=== PATIENT | male | born 1950 | race Caucasian/White ===

== ENCOUNTER → 2017-05-14 | Outpatient (CLI) | payer OTHER ==
--- NOTE | 2017-05-14 10:29 | PCVCIMAG ---
APPROVED REPORT Indications Stenosis Doppler Spectral Velocity Analysis PSV / EDVPSV / EDV ECA (R) 69 / 10 cm/sECA (L) 76 / 8 cm/s dICA (R) 60 / 28 cm/sdICA (L) 52 / 26 cm/s Lana (R) 98 / 37 cm/smICA (L) 73 / 27 cm/s pICA (R) 92 / 37 cm/spICA (L) 56 / 19 cm/s Bulb (R) 44 / 16 cm/sBulb (L) 56 / 14 cm/s dCCA (R) 65 / 13 cm/sdCCA (L) 79 / 19 cm/s mCCA (R) 76 / 19 cm/smCCA (L) 110 / 22 cm/s Vert (R) 53 / 18 cm/sVert (L) 32 / 14 cm/s ICA/CCA 1.51ICA/CCA 0.92 Findings The right carotid bulb has moderate calcified plaque. The right proximal internal carotid artery shows <40% stenosis. The right common carotid artery shows no significant stenosis. The right external carotid artery shows no significant stenosis. The left carotid bulb has moderate calcified plaque. The left proximal internal carotid artery shows <40% stenosis. The left common carotid artery shows no significant stenosis. The left external carotid artery shows no significant stenosis. Conclusion 1. Right internal carotid artery stenosis (<40%) 2. Left internal carotid artery stenosis (<40%) 3. Antegrade vertebral flow
--- NOTE | 2017-05-14 10:40 | PCVCIMAG ---
EXAM: AORTOILIAC DUPLEX INDICATION: Palpable abdominal fullness. FINDINGS: AORTA: Suprarenal aorta measures maximum diameter of 2.5 cm. There is not a fusiform infrarenal aortic aneurysm. The infrarenal aorta measures maximum diameter of 2.3 cm. No aortic stenosis. RIGHT COMMON ILIAC ARTERY: Maximum diameter is 1.0 cm. No significant stenosis. RIGHT EXTERNAL ILIAC ARTERY: No significant stenosis. LEFT COMMON ILIAC ARTERY: Maximum diameter is 1.0 cm. No significant stenosis. LEFT EXTERNAL ILIAC ARTERY: No significant stenosis. IMPRESSION: No abdominal aortic aneurysm. No aortoiliac stenosis seen. LOC:[id number]
--- NOTE | 2017-05-14 13:46 | PCVCIMAG ---
APPROVED REPORT Exam: Stress Echocardiogram Indication: Elevated Calcium score, Hypertension, Hyperlipidemia Patient Location: Echo lab Stress Nurse: Shannan Carl RN Status: routine Ht: 5 ft 10 in HR: 80 bpm BP: 110/70 mmHg Rhythm: NSR Procedure The patient underwent an Exercise Stress Test using the Carlos Protocol. Blood pressure, heart rate, and EKG were monitored. An Echocardiogram was performed by boiler control technician in four stages in quad fashion. At peak stress, four selected images were obtained and placed side by side with resting images for comparison. Stress Test Details Stress Test: Exercise stress testing was performed using a Carlos protocol. HR Resting HR: 80 bpmMax Heart Rate (APMHR): 155 bpm Max HR Achieved: 157 bpmTarget HR (85% APMHR): 131 bpm % of APMHR: 101 Recovery HR: 101 bpm HR response to stress: Normal HR response to stress BP Resting BP: 110/70 mmHg Max BP: 160/78 mmHg Recovery BP: 124/78 mmHg ECG Resting ECG: Sinus Rhythm Stress ECG: Sinus Rhythm ST Change: Normal Maximum ST Deviation: 0 mm Arrhythmia: None Recovery ECG: Sinus Rhythm Recovery ST Change: Normal Recovery ST Deviation: 0 mm Recovery Arrhythmia: None Clinical Reason for Termination: Maximal effort, Dyspnea Stress Symptoms: Dyspnea Exercise duration: 8 min 30 sec Highest Stage Achieved: Stage 3: 3.4 mph at 14% grade. Exercise capacity: 10.1 METs Overall Exercise Capacity for Age: Normal Angina Score: None Stress ECG Conclusion Clinical: Non-ischemic ECG: Non-ischemic Kim Treadmill Score is 8.0 which is Low risk. Pre-Stress Echo The resting Echocardiogram showed normal left ventricular contractility with an estimated Ejection Fraction of about >55%. Normal wall motion in all segments on baseline images. Post-Stress Echo The stress Echocardiogram showed normal left ventricular contractility with an estimated Ejection Fraction of about 65%. Normal augmentation of wall motion in all segments on post stress images. Clinical No clinical or ECG evidence for ischemia. Conclusion Clinical Response: Non-ischemic Exercise Capacity: Average Stress ECG Response: Non-ischemic Stress Echo Images: Non-ischemic The left ventricle is normal in size and wall thickness in both the rest and stress images. Normal stress echocardiogram with maximal exercise stress. Other Information Study Quality: Adequate <Conclusion> The left ventricle is normal in size and wall thickness in both the rest and stress images. Normal stress echocardiogram with maximal exercise stress.
== END | disposition home or self-care (01) ==
LOC: PCVCIMAG 09:51
PROVIDERS: ATTEND Internal Medicine
DX: I65.23 Occlusion and stenosis of bilateral carotid arteries (principal); I10 Essential (primary) hypertension; J43.9 Emphysema, unspecified; E78.5 Hyperlipidemia, unspecified; R19.00 Intra-abdominal and pelvic swelling, mass and lump, unspecified site; R93.1 Abnormal findings on diagnostic imaging of heart and coronary circulation
CPT/HCPCS: 93325; 93351; 93880; 93978